=== PATIENT | female | born 1970 | race Caucasian/White ===

== ENCOUNTER 2020-04-14 13:49 | Emergency (ER) | payer MEDICARE, MEDICAID ==
[2020-04-14 14:07] VITALS: TEMP 97.8
[2020-04-14] MEDS ORDERED: ALBUTEROL SULFATE 2.5 MG/3 ML VIAL NEB ONE (15:03)
[2020-04-14] MEDS ORDERED: IPRATROPIUM/ALBUTEROL 3 ML VIAL NEB ONE (15:18)
--- NOTE | 2020-04-14 16:01 | RAD ---
EXAM DESCRIPTION: Chest,2 Views CLINICAL HISTORY: 50 years Female, sob COMPARISON: None. TECHNIQUE: 2 view radiograph of the chest. IMPRESSION: Suboptimal evaluation secondary to poor penetration due to patient body habitus. Enlarged cardiac silhouette. Bilateral perihilar fullness and coarse reticular markings probably representing vascular congestion and pulmonary edema from congestive heart failure. Left basilar opacification could represent pneumonia or aspiration. No pleural effusion or pneumothorax. Thoracic spondylosis. Electronically signed by: Jose Cevallos MD 04/14/2020 4:00 PM [facility]
--- NOTE | 2020-04-14 16:08 | ED.PDOC ---
History of Present Illness - General Chief Complaint: Respiratory Problem Stated Complaint: shortness of breath,low oxygen sats Time Seen by Provider: 04/14/20 14:59 Source: patient, RN notes reviewed, Vital Signs reviewed, family - Exam Limitations: no limitations - History of Present Illness Initial Comments: Patient is a 50-year-old white female who is morbidly obese who presents with complaints of shortness of breath. Apparently her oxygen concentrator at home had clogged filters and she was not getting any oxygen except room air. Patient is normally on 2-1/2 to 3 L of of oxygen per minute. On arrival here patient was placed on oxygen and it resolved her problems. Patient denies any cough or fever. Patient denies any chest pain or extremity edema. The shortness of breath is worse with exertion and better with oxygen. Timing/Duration: 1-3 hours Severity: severe Activities at Onset: none Possible Cause: other - Oxygen concentrator was clogged Improving Factors: nothing Worsening Factors: movement Associated Symptoms: denies symptoms Respiratory Risk Factors: no cause identified Allergies/Adverse Reactions: Allergies Aloe [From Benzoin Compound Tincture] Allergy (Verified 08/06/19 15:19) Aspirin Allergy (Verified 08/06/19 15:19) Balsam [From Benzoin Compound Tincture] Allergy (Verified 08/06/19 15:19) Benzoin [From Benzoin Compound Tincture] Allergy (Verified 08/06/19 15:19) Carbamazepine [From Tegretol] Allergy (Verified 08/06/19 15:19) Ethanol [From Benzoin Compound Tincture] Allergy (Verified 08/06/19 15:19) Ibuprofen [From Motrin] Allergy (Verified 08/06/19 15:19) Ketorolac Tromethamine [From Toradol] Allergy (Verified 08/06/19 15:19) Levofloxacin [From Levaquin] Allergy (Verified 08/06/19 15:19) Methocarbamol [From Robaxin] Allergy (Verified 08/06/19 15:19) Metoclopramide [From Reglan] Allergy (Verified 08/06/19 15:19) NSAIDs Allergy (Verified 08/06/19 15:19) Phenytoin [From Dilantin] Allergy (Verified 08/06/19 15:19) Prochlorperazine [From Compazine] Allergy (Verified 08/06/19 15:19) Sulfamethoxazole w/Trimethoprim [From Bactrim] Allergy (Verified 08/06/19 15:19) Valproic Acid [From Depakote] Allergy (Verified 08/06/19 15:19) Home Medications: Ambulatory Orders Acebutolol HCl [Acebutolol Hydrochloride] 800 mg PO BID 08/06/19 Clonazepam 1 mg PO BEDTIME 08/06/19 Human Insulin Aspart [Novolog] 100 unit SC TID 08/06/19 Hydrochlorothiazide 25 mg PO DAILY 08/06/19 Insulin Degludec [Tresiba] 260 unit SC BEDTIME 08/06/19 Pantoprazole Sodium 40 mg PO DAILY 08/06/19 Rimidex 1 Mg 1 mg PO BEDTIME 08/06/19 Triamterene & Hydrochlorothiaz [Triamterene/Hydrochloroth 37.5-25 mg] 1 cap PO BID 08/06/19 Zolpidem Tartrate [Ambien] 10 mg PO BEDTIME 08/06/19 Review of Systems - Review of Systems Constitutional: States: no symptoms reported, see HPI. Denies: chills, diaphoresis, malaise, weakness EENTM: States: no symptoms reported. Denies: eye pain, blurred vision, double vision Respiratory: States: see HPI, short of breath. Denies: cough, stridor, wheezing Cardiology: States: no symptoms reported. Denies: chest pain, palpitations, s yncope Gastrointestinal/Abdominal: States: no symptoms reported. Denies: abdominal pain, diarrhea, nausea, vomiting Genitourinary: States: no symptoms reported. Denies: dysuria, frequency Musculoskeletal: States: no symptoms reported. Denies: back pain, joint pain, neck pain Skin: States: no symptoms reported. Denies: change in color, rash Neurological: States: no symptoms reported. Denies: headache, numbness, paresthesia, tingling, tremors, weakness Endocrine: States: no symptoms reported. Denies: increased hunger, increased thirst, increased urine Hematologic/Lymphatic: States: no symptoms reported. Denies: blood clots, easy bleeding All other Systems: Reviewed and Negative Past Medical History (General) - Patient Medical History Hx Seizures: Yes - Epilepsy Hx Stroke: No Hx Asthma: Yes Hx Congestive Heart Failure: No Hx Hypertension: Yes Hx Diabetes: Yes Hx Gastroesophageal Reflux: Yes Hx Cancer: Yes - Breast - Vaccination History Hx Influenza Vaccination: No Hx Pneumococcal Vaccination: Yes - Social History Hx Tobacco Use: No Family Medical History - Family History Mother Family History: Unknown Living Status: Unknown Physical Exam - Physical Exam General Appearance: Alert, Anxious, Obese, Unkempt, Well Developed, Well Hydrated, Well Nourished Eyes, Ears, Nose, Throat Exam: PERRL/EOMI, normal ENT inspection, pharynx normal Neck: non-tender, full range of motion, supple Respiratory: chest non-tender, respiratory distress - moderate, decreased breath sounds, rhonchi - in bases bilaterally., wheezing - diffusely. End expiratory Cardiovascular/Chest: normal peripheral pulses, regular rate, rhythm, no edema, no gallop, no JVD, no murmur Peripheral Pulses: radial,right: 2+, radial,left: 2+ Gastrointestinal/Abdominal: normal bowel sounds, non tender, soft Extremity: normal range of motion, non-tender, normal inspection Neurologic: digital marketing program manager II-XII nml as tested, no motor/sensory deficits, alert, normal mood/affect, oriented x 3 Skin Exam: normal color, warm/dry Lymphatic: no adenopathy Progress - Progress Progress: Differential diagnosis: Covid, pneumonia, congestive heart failure, CHF among others. 04/14/20 18:34 Patient is markedly improved after being placed on supplemental oxygen. She is feeling much better. Lab work is essentially unremarkable. She is got a mildly elevated BNP which may be mild fluid retention from mild CHF or possibly secondary to her obesity and a pickwickian syndrome. Plan on discharge home with follow-up with PCP next week. I discussed the plan of care with the patient and her and they voiced understanding and agreement. Fan Valero M.D. #[id number] - Results/Orders Results/Orders: 04/14/20 16:12 Telemetry ONCE Sodium Chloride 0.9% (Flush) [Saline Flush Syringe] 3 ml IV PRN PRN Oxygen Stat 04/14/20 16:13 Oxygen Delivery Assessment: QSHIFT 04/14/20 16:15 EKG STAT 04/15/20 09:00 Pulse Ox Daily Laboratory Results - last 24 hr 04/14/20 16:25 WBC 7.5 RBC 4.18 L Hgb 8.7 L Hct 28.7 L MCV 68.6 L MCH 20.9 L MCHC 30.4 L RDW 19.5 H Plt Count 294 MPV 6.2 L Absolute Neuts (auto) 5.60 Absolute Lymphs (auto) 1.20 Absolute Monos (auto) 0.60 Absolute Eos (auto) 0.10 Absolute Basos (auto) 0.00 Neutrophils % 73.9 Lymphocytes % 15.5 L Monocytes % 8.3 Eosinophils % 2.0 Basophils % 0.3 PT 10.9 INR 1.10 PTT (SP) 23.9 Sodium 143 Potassium 5.3 H Chloride 94 L Carbon Dioxide 39 H Anion Gap 15.3 BUN 19 H Creatinine 1.06 BUN/Creatinine Ratio 17.9 Random Glucose 166 H Serum Osmolality 291.0 Calcium 9.0 Magnesium 1.6 L Creatine Kinase 37 CK-MB (CK-2) 2.4 CK-MB (CK-2) % Not Reportable Troponin I < 0.02 B-Natriuretic Peptide 211.0 H* EKG performed on 14 April 2020 at 1649 hrs.: Normal sinus rhythm at 76 bpm, normal axis deviation, no ST or T wave changes concerning for ischemia, normal EKG. No comparison EKG available at this time. EXAM DESCRIPTION: Chest,2 Views CLINICAL HISTORY: 50 years Female, sob COMPARISON: None. TECHNIQUE: 2 view radiograph of the chest. IMPRESSION: Suboptimal evaluation secondary to poor penetration due to patient body habitus. Enlarged cardiac silhouette. Bilateral perihilar fullness and coarse reticular markings probably representing vascular congestion and pulmonary edema from congestive heart failure. Left basilar opacification could represent pneumonia or aspiration. No pleural effusion or pneumothorax. Thoracic spondylosis. Electronically signed by: Jose Cevallos MD 04/14/2020 4:00 PM [facility] Vital Signs 04/14/20 04/14/20 04/14/20 14:03 14:48 15:20 Temperature 97.8 F Pulse Rate 81 Pulse Rate [ 85 Right Ulnar] Respiratory 24 24 24 Rate Blood Pressure 167/75 [Right Arm] O2 Sat by Pulse 72 L 92 L Oximetry 04/14/20 04/14/20 04/14/20 15:27 16:53 17:31 Temperature Pulse Rate Pulse Rate [ 81 80 Right Ulnar] Respiratory 20 20 Rate Blood Pressure 140/84 138/67 [Right Arm] O2 Sat by Pulse 100 93 L 96 Oximetry 04/14/20 16:12 Telemetry ONCE Sodium Chloride 0.9% (Flush) [Saline Flush Syringe] 3 ml IV PRN PRN Oxygen Stat 04/14/20 16:13 Oxygen Delivery Assessment: QSHIFT 04/14/20 16:15 EKG STAT 04/15/20 09:00 Pulse Ox Daily Laboratory Results - last 24 hr 04/14/20 04/14/20 16:25 17:57 WBC 7.5 RBC 4.18 L Hgb 8.7 L Hct 28.7 L MCV 68.6 L MCH 20.9 L MCHC 30.4 L RDW 19.5 H Plt Count 294 MPV 6.2 L Absolute Neuts (auto) 5.60 Absolute Lymphs (auto) 1.20 Absolute Monos (auto) 0.60 Absolute Eos (auto) 0.10 Absolute Basos (auto) 0.00 Neutrophils % 73.9 Lymphocytes % 15.5 L Monocytes % 8.3 Eosinophils % 2.0 Basophils % 0.3 PT 10.9 INR 1.10 PTT (SP) 23.9 Sodium 143 Potassium 5.3 H Chloride 94 L Carbon Dioxide 39 H Anion Gap 15.3 BUN 19 H Creatinine 1.06 BUN/Creatinine Ratio 17.9 Random Glucose 166 H Serum Osmolality 291.0 Calcium 9.0 Magnesium 1.6 L Creatine Kinase 37 CK-MB (CK-2) 2.4 CK-MB (CK-2) % Not Reportable Troponin I < 0.02 B-Natriuretic Peptide 211.0 H* Urine Color Yellow Urine Appearance Clear Urine pH 7.0 Ur Specific [place] 1.020 Urine Protein Negative Urine Glucose (UA) Negative Urine Ketones Negative Urine Blood Negative Urine Nitrite Negative Urine Bilirubin Negative Urine Urobilinogen 0.2 Ur Leukocyte Esterase Trace H Urine RBC 0 Urine WBC 1-3 Ur Epithelial Cells 1-3 Urine Bacteria Rare Departure - Departure Clinical Impression: Hypoxia, Morbid obesity, Fluid retention, Elevated brain natriuretic peptide (BNP) level Time of Disposition: 18:37 Disposition: Discharge to Home or Self Care Condition: Good Departure Forms: ED Discharge - Pt. Copy, Patient Portal Self Enrollment Instructions: Shortness of Breath (Dyspnea) (DC), Obesity, Adult (DC) Diet: resume usual diet Activity: increase activity as tolerated Referrals: CRISTHIAN URIOSTEGUI IV, TECHNICAL DEVELOPER [Active Staff] - 1-5 Days Home Medications: Ambulatory Orders Acebutolol HCl [Acebutolol Hydrochloride] 800 mg PO BID 08/06/19 Clonazepam 1 mg PO BEDTIME 08/06/19 Human Insulin Aspart [Novolog] 100 unit SC TID 08/06/19 Hydrochlorothiazide 25 mg PO DAILY 08/06/19 Insulin Degludec [Tresiba] 260 unit SC BEDTIME 08/06/19 Pantoprazole Sodium 40 mg PO DAILY 08/06/19 Rimidex 1 Mg 1 mg PO BEDTIME 08/06/19 Triamterene & Hydrochlorothiaz [Triamterene/Hydrochloroth 37.5-25 mg] 1 cap PO BID 08/06/19 Zolpidem Tartrate [Ambien] 10 mg PO BEDTIME 08/06/19
[2020-04-14] MEDS ORDERED: SODIUM CHLORIDE 0.9% (FLUSH) 10 ML SYG IV PRN (16:12)
[2020-04-14 18:34] VITALS: BP 169/86; O2SAT 92
== END 2020-04-14 18:45 | disposition home or self-care (01) ==
LOC: ER 13:49
DX: R09.02 Hypoxemia (principal); R06.02 Shortness of breath; E66.01 Morbid (severe) obesity due to excess calories; R79.89 Other specified abnormal findings of blood chemistry; R60.9 Edema, unspecified; G40.909 Epilepsy, unspecified, not intractable, without status epilepticus; J45.909 Unspecified asthma, uncomplicated; I10 Essential (primary) hypertension; E11.9 Type 2 diabetes mellitus without complications; K21.9 Gastro-esophageal reflux disease without esophagitis; Z20.828 Contact with and (suspected) exposure to other viral communicable diseases; Z85.3 Personal history of malignant neoplasm of breast; Z68.44 Body mass index [BMI] 60.0-69.9, adult; Z79.4 Long term (current) use of insulin; Z79.899 Other long term (current) drug therapy; Z88.8 Allergy status to other drugs, medicaments and biological substances; Z88.6 Allergy status to analgesic agent; Z88.1 Allergy status to other antibiotic agents; Z99.81 Dependence on supplemental oxygen
CPT/HCPCS: 36415; 71046; 80048; 81001; 82550; 82553; 83880; 84484; 85025; 85610; 85730; 87635; 93005; 94640; 94760; J7611; J7620